=== PATIENT | male | born 1950 | race Hispanic/Latino ===

== ENCOUNTER 2023-02-17 22:04 | Emergency (ER) | payer OTHER ==
[~2023-02-17] VITALS: Ht 170.2 cm; Wt 59.0 kg
[2023-02-17] MEDS ORDERED: SODIUM CHLORIDE FLUSH 10 ML SYR IV PRN (22:45)
[2023-02-17 22:49] LABS: BASOPHILS # (AUTO) 0.1 (0.0-0.1); BASOPHILS % 0.9 % (0.0-1.0); EOSINOPHILS # (AUTO) 0.3 (0.0-0.4); EOSINOPHILS % 5.3 % (0.0-6.0); HEMOGLOBIN 11.7 g/dL (14.0-18.0); LYMPHOCYTES # (AUTO) 1.5 (1.0-3.2); MEAN CORPUSCULAR HEMOGLOBIN 30.8 pg (28-32); MEAN CORPUSCULAR HGB CONC 34.4 g/dL (31-35); MEAN CORPUSCULAR VOLUME 89.5 fL (81-99); MONOCYTES # (AUTO) 0.6 (0.2-0.8); NEUTROPHILS # (AUTO) 3.1 (2.1-6.9); NEUTROPHILS % 56.4 % (38.7-80.0); PLATELET COUNT 189 x10e3/uL (140-360)
[2023-02-17 23:09] LABS: ALBUMIN 3.1 g/dL (3.5-5.0); ALBUMIN/GLOBULIN RATIO 1.2 (0.8-2.0); CALCIUM 7.5 mg/dL (8.4-10.2); CREATININE, SERUM 3.6 mg/dL (0.72-1.25)
[2023-02-17] MEDS ORDERED: [UNRECOGNIZED DRUG - OTHER] IV SCH (23:45)
[2023-02-17] MEDS ORDERED: DEXTROSE 5% IV SCH (23:45)
[2023-02-17] MEDS ORDERED: HEPARIN SOD (PORCINE) 5,000 UNIT/ML VIAL IV ONE (23:45)
[2023-02-17] MEDS ORDERED: HEPARIN IV SCH (23:45)
[2023-02-17 23:55] LABS: INR 1.06; PROTHROMBIN TIME 14.5 seconds (11.9-14.5)
[2023-02-17 23:56] LABS: PARTIAL THROMBOPLASTIN TIME 39.4 seconds (23.8-35.5)
[2023-02-18 01:40] VITALS: BP 103/74; PULSE 66; RESP 14; TEMP 98; O2SAT 100
== END 2023-02-18 02:20 | disposition short-term general hospital (02) ==
LOC: ER 22:29
DX: R06.00 Dyspnea, unspecified (principal); J81.1 Chronic pulmonary edema; U09.9 Post COVID-19 condition, unspecified; I10 Essential (primary) hypertension; E03.9 Hypothyroidism, unspecified
CPT/HCPCS: 36415; 71046; 80053; 83880; 84484; 85025; 85379; 85610; 85730; 93005; 99284; U0002